=== PATIENT | female | born 1990 | race American Indian/Alaskan Native ===

== ENCOUNTER 2020-04-27 19:25 | Outpatient (CLI) | payer OTHER ==
[2020-04-27 19:58] VITALS: BP 103/53
[2020-04-27] MEDS ORDERED: LACTATED RINGERS 1,000 ML IV ONE (20:14)
[2020-04-27 20:59] LABS: Bilirubin,Urine NEG (Negative); Blood,Urine NEG (Negative); Color,Urine Yellow (Yellow); Mucus,Urine FEW /HPF; Protein,Urine <15 mg/dL mg/dL (Negative)
[2020-04-27 21:06] LABS: Amphetamine Screen,Urine PRESUMPTIVE NEGATIVE; Benzodiazepines Screen,Urine PRESUMPTIVE NEGATIVE; Cannabinoid Screen,Urine PRESUMPTIVE NEGATIVE; Cocaine Screen,Urine PRESUMPTIVE NEGATIVE; Methadone Screen,Urine PRESUMPTIVE NEGATIVE; Opiate Screen,Urine PRESUMPTIVE NEGATIVE
[2020-04-27 22:13] LABS: Hematocrit 26.4 % (30.3-42.9); Hemoglobin 8.6 gm/dl (10.1-14.3); Mean Corpuscular HGB Conc 33 % (30-34); Mean Corpuscular Volume 75 fl (79-97); Platelet Count 177 K/mm3 (140-440); Red Blood Count 3.54 M/mm3 (3.65-5.03); Red Cell Distribution Width 14.9 % (13.2-15.2)
[2020-04-27 22:19] LABS: Alanine Aminotransferase 7 units/L (7-56)
--- NOTE | 2020-04-27 23:12 | Event Note ---
Date: 04/27/20 gestation with c/o lower back and swollen legs. Urine dip confirms dehydration with ketones only and pt given IV fluid hydration with good response. BPP done because pt c/o leakage of fluid and tracing with areas of loss of contact, BPP 11/15 with fluid of 10. PTL precaution given and pt discharged home
--- NOTE | 2020-04-27 23:47 | Ultrasound Report ---
Limited obstetrical ultrasound INDICATION: 31 week 3 day , amniotic fluid evaluation COMPARISON: None FINDINGS: Well formed intrauterine fetus is seen in a cephalic position. Placenta is fundal and free of the internal cervical os. Amniotic fluid volume appears qualitatively within normal limits and NADYA is within normal limits at 12.4 cm. cardiac activity was documented at 161 bpm. BIOPHYSICAL PROFILE breathing movements: 2/2 movements: 2/2 posture and tone tone: 2/2 Qualitative amniotic fluid volume: 2/2 Total score: 8/8, within normal limits Signer Name: Brijesh Iglesias MD Signed: 04/27/2020 11:43 PM Workstation Name: [id number]
== END 2020-04-27 23:45 | disposition home or self-care (01) ==
LOC: TRG 19:25 → APU 19:39 → TRG 23:45
PROVIDERS: ATTEND Obstetrics & Gynecology
DX: O26.893 Other specified pregnancy related conditions, third trimester (principal); M54.5 Low back pain; R10.2 Pelvic and perineal pain; O99.343 Other mental disorders complicating pregnancy, third trimester; F32.9 Major depressive disorder, single episode, unspecified; F41.9 Anxiety disorder, unspecified; J45.909 Unspecified asthma, uncomplicated; Z87.891 Personal history of nicotine dependence; Z3A.31 31 weeks gestation of pregnancy
CPT/HCPCS: 36415; 59025; 76815; 76819; 80307; 81001; 82565; 83615; 84450; 84460; 84550; 85027; 96360; J7120

== ENCOUNTER 2020-05-20 17:08 | Outpatient (CLI) | payer OTHER ==
[2020-05-20 18:03] VITALS: BP 116/58
[2020-05-20] MEDS ORDERED: LACTATED RINGERS 500 ML IV ONE (18:37)
[2020-05-20 18:57] LABS: Bilirubin,Urine NEG (Negative); Blood,Urine NEG (Negative); Color,Urine Yellow (Yellow); Mucus,Urine FEW /HPF; Protein,Urine <15 mg/dL mg/dL (Negative); RBC,Urine < 1.0 /HPF (0.0-6.0)
== END 2020-05-20 19:38 | disposition home or self-care (01) ==
LOC: TRG 17:08 → APU 17:10 → TRG 19:23
PROVIDERS: ATTEND Obstetrics & Gynecology
DX: O47.03 False labor before 37 completed weeks of gestation, third trimester (principal); Z3A.37 37 weeks gestation of pregnancy
CPT/HCPCS: 81001

== ENCOUNTER 2020-05-21 15:36 | Outpatient (CLI) | payer OTHER ==
[2020-05-21 16:28] VITALS: BP 107/60
[2020-05-21] MEDS ORDERED: LACTATED RINGERS 1,000 ML ONE (19:12)
== END 2020-05-21 22:19 | disposition home or self-care (01) ==
LOC: TRG 15:36 → APU 15:37 → TRG 22:19
PROVIDERS: ATTEND Obstetrics & Gynecology
DX: O36.8130 Decreased fetal movements, third trimester, not applicable or unspecified (principal); O99.343 Other mental disorders complicating pregnancy, third trimester; F41.9 Anxiety disorder, unspecified; F31.9 Bipolar disorder, unspecified; Z3A.34 34 weeks gestation of pregnancy; Z87.891 Personal history of nicotine dependence
CPT/HCPCS: 59025; 96360

== ENCOUNTER 2020-05-27 21:47 | Observation (INO) | payer OTHER ==
[2020-05-27] MEDS ORDERED: LACTATED RINGERS 1,000 ML IV ONE (22:44)
[2020-05-27 23:07] LABS: Bilirubin,Urine NEG (Negative); Blood,Urine NEG (Negative); Color,Urine Yellow (Yellow); Mucus,Urine FEW /HPF; Protein,Urine <15 mg/dL mg/dL (Negative); Urobilinogen,Urine < 2.0 mg/dL (<2.0)
[2020-05-28] MEDS ORDERED: MORPHINE 4 MG/1 ML INJ IM ONE (00:36)
[2020-05-28] MEDS ORDERED: ONDANSETRON 4 MG/2 ML INJ IV ONE (00:39)
[2020-05-28] MEDS ORDERED: LACTATED RINGERS 1,000 ML IV SCH (00:45)
[2020-05-28 12:59] VITALS: BP 101/55
== END 2020-05-28 12:30 | disposition home or self-care (01) ==
LOC: TRG 21:47 → APU 21:56 → TRG 05-28 00:44 → LD 05-28 00:44
PROVIDERS: ADMIT Obstetrics & Gynecology; ATTEND Obstetrics & Gynecology
DX: O26.853 Spotting complicating pregnancy, third trimester (principal); Z3A.35 35 weeks gestation of pregnancy; Z98.891 History of uterine scar from previous surgery; Z86.718 Personal history of other venous thrombosis and embolism; Z87.891 Personal history of nicotine dependence
CPT/HCPCS: 59025; 81001; 96360; 96372; 96374; G0378; J2270; J2405; J7120

== ENCOUNTER 2020-05-30 23:02 | Observation (INO) | payer OTHER ==
[2020-05-30] MEDS ORDERED: LACTATED RINGERS 1,000 ML IV ONE (23:44)
[2020-05-31] MEDS ORDERED: LACTATED RINGERS 1,000 ML ONE (00:07)
[2020-05-31] MEDS: TERBUTALINE 1 MG/1 ML INJ SUB-Q PRN ×2 (00:14→02:53)
[2020-05-31] MEDS ORDERED: LACTATED RINGERS 1,000 ML IV ONE (00:57)
[2020-05-31] MEDS ORDERED: BUTORPHANOL 2 MG/1 ML INJ IV PRN (02:31)
[2020-05-31] MEDS ORDERED: LACTATED RINGERS 1,000 ML IV SCH (02:45)
[2020-05-31] MEDS: NIFEdipine*For Tocolysis only* 10 MG CAPSULE PO SCH ×2 (03:50→08:37)
--- NOTE | 2020-05-31 07:29 | Event Note ---
Date: 05/31/20 29 yo at 36w1d c/b hx PE (on lovenox, not compliant), prior c/s x 2 presenting with contractions. Found to be 2-3 cm. Admitted for OBS given persistent contractions after IVF x 2 liters. Contractions improved after terb x 2. Started on nifedipine 10mg q6hr prn contractions. Restart lovenox. Discharged in good condition.
[2020-05-31 07:38] VITALS: BP 105/58
== END 2020-05-31 09:11 | disposition home or self-care (01) ==
LOC: TRG 23:02 → APU 23:05 → TRG 05-31 02:31 → LD 05-31 02:31
PROVIDERS: ADMIT Obstetrics & Gynecology; ATTEND Obstetrics & Gynecology
DX: O62.9 Abnormality of forces of labor, unspecified (principal); Z3A.36 36 weeks gestation of pregnancy; Z86.711 Personal history of pulmonary embolism; Z98.891 History of uterine scar from previous surgery
CPT/HCPCS: 96372; 96374; G0378; J0595; J3105; J7120

== ENCOUNTER 2020-06-08 21:32 | Inpatient (IN) | payer OTHER ==
[2020-06-08] MEDS ORDERED: LACTATED RINGERS 1,000 ML ONE (22:10)
[2020-06-08 22:30] LABS: Basophils % (Auto) 0.3 % (0.0-1.8); Eosinophils % (Auto) 0.4 % (0.0-4.3); Hematocrit 28.9 % (30.3-42.9); Lymphocytes # (Auto) 2.2 K/mm3 (1.2-5.4); Lymphocytes % (Auto) 30.4 % (13.4-35.0); Mean Corpuscular HGB Conc 31 % (30-34); Mean Corpuscular Volume 72 fl (79-97); Monocytes # (Auto) 0.7 K/mm3 (0.0-0.8); Monocytes % (Auto) 10.1 % (0.0-7.3); Platelet Count 166 K/mm3 (140-440); Red Blood Count 4.04 M/mm3 (3.65-5.03); Red Cell Distribution Width 16.8 % (13.2-15.2)
[2020-06-08] MEDS ORDERED: OXYTOCIN 10 UNIT/1 ML INJ ONE (22:34)
[2020-06-08] MEDS ORDERED: LIDOCAINE (2%) 20 MG/1 ML VIAL 20 ML MDV INFILTRATI ONE (22:37)
--- NOTE | 2020-06-08 23:07 | History and Physical Report ---
History of Present Illness Date of examination: 06/08/20 Date of admission: 06/08/20 21:32 History of present illness: This is a 29-year-old -0-4-3 at 37 weeks and 3 days today who presented with rupture membranes. Rupture confirmed by the nurse with fluid visualized and nitrazine positive. Patient was also guillaume and was 6 cm. Patient with a history of 1 vaginal delivery followed by 2 C-sections and was scheduled for repeat upcoming. But in light of her rupture membranes and dilation, staff was prepared to do a . Upon my arrival about 30 minutes later they will, patient was complete and the vertex was at +3 station. heart tracing was category 1. As a result patient verbally agreed to proceed with a . Please see delivery note for details. No record is available at this time. Patient notes that she had gestational diabetes A1 during the . Patient also notes a history of a pulmonary embolus in 2019. She notes that she was on Lovenox but she stopped it herself 2 weeks ago. Patient with no current chest pain or shortness of breath. She also notes that she is currently on antibiotics for UTI. Past History Past Medical History: asthma, other (GDMA1, pulm embolus in 2019) Past Surgical History: section (x 2) [employer] History: chlamydia, gonorrhea Social history: smoking (former) - Obstetrical History : 8 Hx # Term Pregnancies: 4 Spontaneous Abortions: 4 Number of Living Children: 4 Medications and Allergies Allergies Allergy/AdvReac Type Severity Reaction Status Date / Time No Known Allergies Allergy Unverified 04/27/20 20:14 Home Medications Medication Instructions Recorded Confirmed Last Taken Type Enoxaparin Sodium [Lovenox] 40 mg SQ QDAY #30 syringe 05/31/20 05/06/20 Rx NIFEdipine [Procardia] 10 mg PO Q6H PRN #120 capsule 05/31/20 04/11/20 Rx Ferrous Sulfate 325 mg PO DAILY 06/08/20 06/08/20 06/08/20 08:00 History 147/Iron/Folic Acid 1 mg PO DAILY 06/08/20 06/08/20 06/08/20 08:00 History Review of Systems All systems: negative (except HPI) - Vital Signs Vital signs: Vital Signs Temp Pulse Resp BP Pulse Ox 98 F 93 H 18 137/88 100 03/01/21 21:45 06/08/20 21:45 06/08/20 21:45 06/08/20 21:45 06/08/20 21:45 Temp Pulse Resp BP Pulse Ox 98 F 63 18 137/88 97 06/08/20 21:45 06/08/20 22:20 06/08/20 21:45 06/08/20 22:01 06/08/20 22:20 - Physical Exam Abdomen: Positive: normal appearance, soft. Negative: tenderness Genitourinary (Female): Positive: normal external genitalia - Obstetrical FHR: category 1 Results Result Diagrams: 06/08/20 22:15 Abnormal lab results 06/08/20 Range/Units 22:15 Hgb 9.0 L (10.1-14.3) gm/dl Hct 28.9 L (30.3-42.9) % MCV 72 L (79-97) fl MCH 22 L (28-32) pg RDW 16.8 H (13.2-15.2) % [place] % (Auto) 10.1 H (0.0-7.3) % All other labs normal. Assessment and Plan - Patient Problems (1) , delivered Current Visit: Yes Status: Acute Plan to address problem: Patient is now status post a delivery. See delivery note for details. Continue regular standard care. Would try to obtain records in the morning to review.
--- NOTE | 2020-06-08 23:15 | Procedure Note ---
OB Delivery Note - Delivery Date of Delivery: 06/08/20 Surgeon: SARAH BARRIOS Estimated blood loss: 200cc - Vaginal Delivery presentation: vertex Delivery position: OA Delivery induction: none Delivery monitor: external FHT Route of delivery: Delivery placenta: spontaneous Delivery cord: nuchal cord, 3 umbilical vessels, other (loose nuchal cord x 2) Episiotomy: none Delivery laceration: 1st degree (periurethral repaired on the right.), 2nd degree Delivery repair: vicryl Anesthesia: local Delivery comments: Upon my arrival, the vertex was already at +3 station. There was a category 1 heart tracing. As result patient verbally consented for a which she agreed to. Patient was able to deliver the baby with 1 set of pushes. Anterior shoulder delivered without difficulty. Loose nuchal cord x2 reduced. Baby bulb suctioned at the perineum and again after delivery. Delayed cord clamping and cut. Baby to the mother and then the warmer. Placenta delivered spontaneously and was delivered in its entirety. First-degree periurethral on the right and second-degree laceration repaired with 2-0 Vicryl. Good hemostasis throughout. Mother and baby stable. - A Infant Gender: Female
[2020-06-08] MEDS ORDERED: LANOLIN/ZINC/DIMETHICONE (LANSINOH) 7 GM TP PRN ×2 (23:17)
[2020-06-08] MEDS ORDERED: BENZOCAINE/MENTHOL 20/0.5% TOP SPRAY 56 GM TP PRN (23:17)
[2020-06-08] MEDS ORDERED: diphenhydrAMINE 25 MG CAP PO PRN (23:17)
[2020-06-08] MEDS ORDERED: WITCH HAZEL/ GLYCERIN PAD TP PRN (23:17)
[2020-06-08] MEDS ORDERED: PROMETHAZINE 25 MG RECT SUPP PR PRN (23:17)
[2020-06-08] MEDS ORDERED: PROMETHAZINE 25 MG TAB PO PRN (23:17)
[2020-06-08] MEDS ORDERED: ONDANSETRON 4 MG/2 ML INJ IV PRN (23:17)
[2020-06-08] MEDS ORDERED: MAGNESIUM HYDROXIDE (MOM) ORAL LIQD UDC PO PRN (23:17)
[2020-06-08] MEDS ORDERED: OXYTOCIN DRIP 30 UNITS/500 ML BAG IV SCH (23:45)
[2020-06-09] MEDS ORDERED: OXYTOCIN 10 UNIT/1 ML INJ IM ONE (00:06)
[2020-06-09] MEDS: IBUPROFEN 600 MG TAB PO SCH ×4 (00:15→22:53)
[2020-06-09] MEDS: oxyCODONE /ACETAMINOPHEN 5-325MG TAB PO PRN ×2 (05:17→20:26)
[2020-06-09] MEDS: ENOXAPARIN 40 MG/0.4 ML INJ SUB-Q SCH (05:18)
--- NOTE | 2020-06-09 09:25 | Progress Note ---
Assessment and Plan A: S/P Asymptomatic anemia Hx PE Questionable uti P: Continue routine pp care Ferrous Sulfate prescribed Continue Lovenox Rocephin x1 for questionable uti UA was ordered; if needed will order po abt D/C home tomm if stable Subjective - Subjective Date of service: 06/09/20 Principal diagnosis: s/p Patient reports: appetite normal, voiding normally, pain well controlled, amb ulating normally [place]: doing well, bottle feeding Objective - Vital Signs Latest vital signs: Vital Signs Temp Pulse Resp BP BP Pulse Ox 06/09/20 07:54 97.2 F L 69 20 112/68 97 06/09/20 04:53 98.4 F 90 18 112/51 96 06/09/20 01:00 97.9 F 65 20 122/75 98 06/09/20 00:08 75 121/67 06/08/20 23:53 75 122/66 06/08/20 23:47 77 99 06/08/20 23:45 98.2 F 75 18 122/66 99 06/08/20 23:42 73 100 06/08/20 23:38 75 126/64 06/08/20 23:37 80 100 06/08/20 23:32 87 99 06/08/20 23:30 75 16 126/64 98 06/08/20 23:27 88 99 06/08/20 23:23 81 136/72 06/08/20 23:22 84 100 06/08/20 23:17 83 100 06/08/20 23:15 81 16 136/72 98 06/08/20 23:12 85 100 06/08/20 23:07 88 99 06/08/20 23:05 85 122/64 06/08/20 23:00 88 18 120/70 98 06/08/20 22:45 98.7 F 85 18 122/64 98 06/08/20 22:20 63 97 06/08/20 22:18 93 H 94 06/08/20 22:15 103 H 100 06/08/20 22:10 93 H 100 06/08/20 22:05 100 H 100 06/08/20 22:01 94 H 137/88 06/08/20 22:00 95 H 100 06/08/20 21:55 84 100 06/08/20 21:50 105 H 99 06/08/20 21:45 98 F 93 H 18 137/88 100 Intake and Output 06/08/20 06/09/20 06/09/20 22:59 06:59 14:59 Other: Weight 176 lb Estimated Blood Loss 200 - Exam Breasts: Present: normal Abdomen: Present: normal appearance, soft, normal bowel sounds Vulva: both: normal Uterus: Present: normal, firm, fundal height below umbilicus Extremities: Present: normal Incision: Present: normal, intact - Labs Labs: Abnormal lab results 06/08/20 Range/Units 22:15 Hgb 9.0 L (10.1-14.3) gm/dl Hct 28.9 L (30.3-42.9) % MCV 72 L (79-97) fl MCH 22 L (28-32) pg RDW 16.8 H (13.2-15.2) % [place] % (Auto) 10.1 H (0.0-7.3) %
--- NOTE | 2020-06-09 09:54 | Discharge Summary ---
Providers - Providers Date of Admission: 06/08/20 21:32 Date of discharge: 06/10/20 Attending physician: SARAH BARRIOS Primary care physician: SARAH BARRIOS Hospitalization Reason for admission: active labor, IUP at term Delivery: Episiotomy: none Laceration: 2nd degree Incision: normal, intact Other procedures: none complications: none Discharge diagnosis: IUP at term delivered, [place] baby: female Hospital course: Pt was admitted to [facility] in labor. She had a after 2 previous c/s w/o complications. Pt was started on Lovenox pp r/t a hx of PE. ABT was given for a hx of uti per pt. She was discharged home with a rx for Lovenox to be continued for 6 wks pp. Condition at discharge: Stable Disposition: DC-01 TO HOME OR SELFCARE Plan - Discharge Medications Prescriptions: Enoxaparin 40 mg SUB-Q QDAY #60 syringe Ibuprofen [Motrin 600 MG tab] 600 mg PO Q6HR #30 tablet - Provider Discharge Summary Activity: routine, no sex for 6 weeks, no heavy lifting 4 weeks, no strenuous exercise Diet: routine Instructions: routine Additional instructions: [] Smoking cessation referral if applicable(refer to patient education folder for contact #) [] Refer to [facility] Booklet Call your doctor immediately for: * Fever > 100.5 * Heavy vaginal bleeding ( >1 pad per hour) * Severe persistent headache * Shortness of breath * Reddened, hot, painful area to leg or breast * Drainage or odor from incision. * Keep incision clean and dry at all times and follow doctor's instructions regarding bathing/showering Continue Lovenox x 6 wks pp Monitor for increased bleeding and notify provider if noticed - Follow up plan Follow up: SARAH BARRIOS MD [Primary Care Provider] - 6 Weeks
[2020-06-09] MEDS ORDERED: LIDOCAINE-MPF (1%) 10 MG/1 ML VIAL 5 ML INFILTRATI ONE (10:00)
[2020-06-09] MEDS ORDERED: ENOXAPARIN 40 MG/0.4 ML INJ SUB-Q SCH (10:00)
[2020-06-09] MEDS: FERROUS SULFATE 325 MG TAB PO SCH ×2 (10:11→22:51)
[2020-06-09 16:04] LABS: Bilirubin,Urine NEG (Negative); Blood,Urine SM (Negative); Color,Urine Yellow (Yellow); Mucus,Urine FEW /HPF; Protein,Urine <15 mg/dL mg/dL (Negative); Urobilinogen,Urine < 2.0 mg/dL (<2.0)
[2020-06-09 16:28] LABS: Hematocrit 24.8 % (30.3-42.9); Hemoglobin 7.9 gm/dl (10.1-14.3)
[2020-06-10] MEDS: ENOXAPARIN 40 MG/0.4 ML INJ SUB-Q SCH (04:56)
[2020-06-10] MEDS: IBUPROFEN 600 MG TAB PO SCH ×3 (04:57→13:25)
[2020-06-10] MEDS: FERROUS SULFATE 325 MG TAB PO SCH (10:14)
[2020-06-10 14:21] VITALS: BP 112/65
== END 2020-06-10 14:55 | disposition home or self-care (01) | DRG 774 ==
LOC: APU 21:32 → LD 22:26 → OB 06-09 01:03
PROVIDERS: ADMIT Obstetrics & Gynecology; ATTEND Obstetrics & Gynecology
PROC: 10E0XZZ Delivery of Products of Conception, External Approach (ICD-10-PCS; principal; 2020-06-08)
PROC: 0KQM0ZZ Repair Perineum Muscle, Open Approach (ICD-10-PCS; 2020-06-08)
DX: O34.219 Maternal care for unspecified type scar from previous cesarean delivery (principal); O98.32 Other infections with a predominantly sexual mode of transmission complicating childbirth; O70.1 Second degree perineal laceration during delivery; O71.82 Other specified trauma to perineum and vulva; Z3A.37 37 weeks gestation of pregnancy; N85.8 Other specified noninflammatory disorders of uterus; O99.02 Anemia complicating childbirth; O99.52 Diseases of the respiratory system complicating childbirth; J45.909 Unspecified asthma, uncomplicated; A60.09 Herpesviral infection of other urogenital tract; Z86.711 Personal history of pulmonary embolism; Z37.0 Single live birth
CPT/HCPCS: 36415; 59025; 81001; 85014; 85018; 85025; 86592; 86850; 86900; 86901; 88307; G0378; J0696; J1650; J2590